=== PATIENT | male | born 1970 | race Caucasian/White ===

== ENCOUNTER 2023-01-28 13:43 | Inpatient (IN) | payer MEDICAID ==
[2023-01-28] VITALS (11 sets, daily range): BP systolic 105–159; BP diastolic 71–101; PULSE 96–125; RESP 18–23; TEMP 98.4; O2SAT 91
[~2023-01-28] VITALS: Ht 172.7 cm; Wt 77.6 kg
[2023-01-28] MEDS: SODIUM CHLORIDE 0.9% 1,000 ML IV SCH ×2 (14:00→23:01)
[2023-01-28] MEDS ORDERED: LEVOFLOXACIN 750MG PREMIX 150 ML IV ONE (14:15)
[2023-01-28] MEDS ORDERED: PIPERACILLIN/TAZ 3.375G PREMIX 50 ML IV ONE (14:15)
[2023-01-28] MEDS ORDERED: SODIUM CHLORIDE 0.9% 1000ML BAG (SEPSIS BOLUS) IV ONE (14:15)
[2023-01-28] MEDS ORDERED: VANCOMYCIN 1G PREMIX 200 ML IV ONE (14:15)
[2023-01-28] MEDS ORDERED: HYDROCORTISONE SOD SUCCINATE 100 MG/2 ML VIAL IV ONE (14:15)
[2023-01-28 14:51] LABS: BG BASE EXCESS -1.2 mmol/L (-2.0-2.0); BG CARBOXYHEMOGLOBIN 0.3 % (0.5-1.5); BG DEOXYHEMOGLOBIN 3.9 % (0.0-5.0); BG FRACTION INSPIRED OXYGEN 100; BG HCO3 ACT 26.1 mmol/L (22.0-26.0); BG METHEMOGLOBIN 0.4 % (0.0-1.5); BG OXYGEN SATURATION 96.1 % (92.0-98.5); BG OXYHEMOGLOBIN 95.4 % (94.0-97.0); BG PH 7.263 (7.350-7.450); BG PO2 103.3 mmHg (75.0-100.0); BG SAMPLE SITE RIGHT RADIAL; BG TOTAL HEMOGLOBIN 7.7 g/dL (12.0-18.0); BG VENT MODE VENT - AC
[2023-01-28 14:52] LABS: CLARITY URINE CLEAR (CLEAR); COLOR URINE DARK YELLOW (YELLOW); GLUCOSE URINE NEGATIVE (NEGATIVE); KETONES URINE NEGATIVE (NEGATIVE); LEUKOCYTE ESTERASE URINE TRACE (NEGATIVE); NITRITE URINE POSITIVE (NEGATIVE); OCCULT BLOOD URINE NEGATIVE (NEGATIVE); PROTEIN URINE 1+ (NEGATIVE); SPECIFIC GRAVITY URINE 1.019 (1.005-1.030); UROBILINOGEN URINE 0.2 E.U./dL (0.2-1.0)
[2023-01-28 14:53] LABS: HEMATOCRIT. 22.4 % (42.0-52.0); MEAN CORPUSCULAR HEMOGLOBIN 22.4 pg (28.0-32.0); MEAN CORPUSCULAR HGB CONC 29.9 g/dL (31.0-37.0); MEAN PLATELET VOLUME 8.4 fl (7.4-10.4); PLATELET 278 x1000/uL (130-400); RED BLOOD CELL COUNT 2.98 mill/uL (4.7-6.1); RED CELL DISTRIBUTION WIDTH 19.6 % (11.6-14.6); WHITE BLOOD COUNT 37.3 x1000/uL (4.5-11.0)
[2023-01-28] MEDS ORDERED: ACETAMINOPHEN 650MG SUPP PR NR (15:00)
[2023-01-28] MEDS ORDERED: IPRATROPIUM/ALBUTEROL 0.5-3(2.5)MG/3ML NEB HHN NR (15:00)
[2023-01-28 15:01] LABS: CHLORIDE 104 mEq/L (98-107); INDEX HEMOLYSI 2 (1-3); INDEX ICTERIC 1 (1-4); INDEX LIPEMIC 1 (1-3); POTASSIUM 4.7 mEq/L (3.5-5.1); SODIUM 137 mEq/L (136-145)
[2023-01-28 15:03] LABS: CALCIUM 7.9 mg/dL (8.5-10.1)
[2023-01-28 15:07] LABS: MUCUS URINE TRACE /lpf (NONE/TRACE); SQUAMOUS EPITHELIAL CELL URINE NONE SEEN /lpf (RARE/1+)
[2023-01-28 15:08] LABS: BACTERIA URINE 1+; YEAST URINE 1+
[2023-01-28 15:09] LABS: RBC URINE 0-2 /hpf (0-2); WBC URINE 0-2 /hpf (0-2)
[2023-01-28 15:11] LABS: INR 1.1; PROTHROMBIN TIME 12.2 sec (9.6-11.0)
[2023-01-28 15:12] LABS: ALANINE AMINOTRANSFERASE 15 IU/L (13-61); ALBUMIN 1.8 g/dL (3.4-5.0); ASPARTATE AMINOTRANSFERASE 27 IU/L (15-37); BILIRUBIN TOTAL 0.5 mg/dL (0.1-1.0); CARBON DIOXIDE 24 mEq/L (21-32); CREATININE 0.6 mg/dL (0.6-1.3); GLUCOSE 115 mg/dL (70-105); NT PRO B-TYPE NATRIURETIC PEP 742 pg/mL (5-125); TROPONIN I HIGH SENSITIVITY 39 ng/L (<78); UREA NITROGEN BLOOD 17 mg/dL (7-21)
[2023-01-28 15:19] LABS: DIFFERENTIAL COMMENT 1; HEMOGLOBIN. 6.7 g/dL (14.0-18.0)
[2023-01-28 15:21] LABS: LACTIC ACID 6.8 mmol/L (0.4-2.0)
[2023-01-28] MEDS ORDERED: NOREPINEPHRINE 8MG/250ML PMX 250 ML IV STA (15:48)
[2023-01-28] MEDS ORDERED: CALCIUM CHLORIDE 1,000 MG in DEXT 5% WATER 90 ML IV ONE (16:00)
[2023-01-28] MEDS ORDERED: NOREPINEPHRINE 8MG/250ML PMX 250 ML IV PRN (16:00)
[2023-01-28 16:13] LABS: ANISOCYTOSIS 2+; HYPOCHROMASIA 1+; MICROCYTOSIS 1+; PLATELET ESTIMATE NORMAL
[2023-01-28] MEDS ORDERED: DOCUSATE SODIUM 100MG CAPSULE PO PRN (16:45)
[2023-01-28] MEDS ORDERED: CLONIDINE 0.1MG TABLET PO PRN (16:45)
[2023-01-28] MEDS ORDERED: GUAIFENESIN 200MG/10ML SUGAR FREE UDC PO PRN (16:45)
[2023-01-28] MEDS ORDERED: ONDANSETRON HCL 4MG/2ML INJ IV PRN (16:45)
[2023-01-28] MEDS ORDERED: MAGNESIUM/ALUMINUM HYDROXIDE/SIMETHICONE 30ML UDC PO PRN (16:45)
[2023-01-28] MEDS ORDERED: ACETAMINOPHEN 325MG TABLET PO PRN (16:45)
[2023-01-28] MEDS ORDERED: NOREPINEPHRINE 8 MG in DEXT 5% WATER 242 ML IV PRN (16:45)
[2023-01-28] MEDS: PANTOPRAZOLE SODIUM 40 MG/VIAL IV SCH (17:00)
[2023-01-28] MEDS ORDERED: AZITHROMYCIN 500MG/250ML 250 ML IV NR (17:00)
[2023-01-28] MEDS ORDERED: NOREPINEPHRINE 8MG/250ML PMX 250ML IV PRN (17:00)
[2023-01-28] MEDS ORDERED: DEXTROSE 50% WATER 50ML SYRINGE IV PRN (17:30)
[2023-01-28 17:40] LABS: PHOSPHORUS 4.5 mg/dL (2.5-4.9)
[2023-01-28 17:57] LABS: FERRITIN 432 ng/mL (22-322)
[2023-01-28] MEDS: MEROPENEM 1,000 MG in SODIUM CHLORIDE 0.9% 100 ML IV SCH (18:00)
[2023-01-28] MEDS: BLOOD SUGAR DIAGNOSTIC STRIP TEST SCH ×2 (18:09→21:00)
[2023-01-28 18:10] LABS: VITAMIN B12 SERUM 1551 pg/mL (211-911)
[2023-01-28] MEDS ORDERED: LEVOFLOXACIN 750MG PREMIX 150 ML IV SCH (18:15)
[2023-01-28 18:17] LABS: FOLIC ACID (FOLATE) SERUM > 20.00 ng/mL (>5.38)
[2023-01-28] MEDS: INSULIN LISPRO 100 UNITS/ML SUBCUT SCH ×2 (18:25→22:59)
[2023-01-28] MEDS ORDERED: VANCOMYCIN 1.25GM PMX (XELLIA) 250 ML IV SCH (20:00)
[2023-01-28] MEDS: IPRATROPIUM/ALBUTEROL 0.5-3(2.5)MG/3ML NEB HHN SCH (20:15)
[2023-01-28] MEDS: VANCOMYCIN 1.25GM PMX (XELLIA) 250 ML IV SCH (22:59)
[2023-01-29] VITALS (45 sets, daily range): BP systolic 100–175; BP diastolic 63–106; PULSE 81–119; RESP 22–25; TEMP 94.1–98.2
[2023-01-29] MEDS: IPRATROPIUM/ALBUTEROL 0.5-3(2.5)MG/3ML NEB HHN SCH ×6 (00:46→20:50)
[2023-01-29] MEDS ORDERED: FLUCONAZOLE 100MG TABLET PEG SCH (01:15)
[2023-01-29 01:29] LABS: HEMATOCRIT 21.8 % (42.0-52.0)
[2023-01-29 01:38] LABS: HEMOGLOBIN 6.7 g/dL (14.0-18.0)
[2023-01-29] MEDS ORDERED: FLUCONAZOLE 200MG/5ML ORAL SYR PEG SCH (02:00)
[2023-01-29] MEDS: MEROPENEM 1,000 MG in SODIUM CHLORIDE 0.9% 100 ML IV SCH ×3 (02:12→20:08)
[2023-01-29] MEDS: INSULIN LISPRO 100 UNITS/ML SUBCUT SCH ×3 (07:33→20:12)
[2023-01-29] MEDS ORDERED: AZITHROMYCIN 500 MG in DEXT 5% WATER 250 ML IV SCH (08:00)
[2023-01-29] MEDS: BLOOD SUGAR DIAGNOSTIC STRIP TEST SCH ×3 (08:35→20:11)
[2023-01-29 08:56] LABS: BG BASE EXCESS -1.2 mmol/L (-2.0-2.0); BG CARBOXYHEMOGLOBIN 0.7 % (0.5-1.5); BG DEOXYHEMOGLOBIN 0.7 % (0.0-5.0); BG FRACTION INSPIRED OXYGEN 100; BG HCO3 ACT 24.5 mmol/L (22.0-26.0); BG METHEMOGLOBIN 0.9 % (0.0-1.5); BG OXYGEN SATURATION 99.3 % (92.0-98.5); BG OXYHEMOGLOBIN 97.7 % (94.0-97.0); BG PCO2 46.9 mmHg (35.0-45.0); BG PH 7.336 (7.350-7.450); BG PO2 236.3 mmHg (75.0-100.0); BG SAMPLE SITE RIGHT RADIAL; BG TOTAL HEMOGLOBIN 6.1 g/dL (12.0-18.0); BG TOTAL RESPIRATORY RATE 22 b/min; BG VENT MODE VENT - AC
[2023-01-29] MEDS: PANTOPRAZOLE SODIUM 40 MG/VIAL IV SCH (09:02)
[2023-01-29 09:06] LABS: DIFFERENTIAL COMMENT 1; HEMATOCRIT. 25.2 % (42.0-52.0); HEMOGLOBIN. 7.9 g/dL (14.0-18.0); MEAN CORPUSCULAR HEMOGLOBIN 24.3 pg (28.0-32.0); MEAN CORPUSCULAR HGB CONC 31.2 g/dL (31.0-37.0); MEAN CORPUSCULAR VOLUME 77.7 fL (80.0-94.0); MEAN PLATELET VOLUME 8.1 fl (7.4-10.4); PLATELET 333 x1000/uL (130-400); RED BLOOD CELL COUNT 3.24 mill/uL (4.7-6.1); RED CELL DISTRIBUTION WIDTH 20.4 % (11.6-14.6)
[2023-01-29 09:26] LABS: CHLORIDE 110 mEq/L (98-107); INDEX HEMOLYSI 1 (1-3); INDEX ICTERIC 1 (1-4); INDEX LIPEMIC 1 (1-3); POTASSIUM 3.6 mEq/L (3.5-5.1); SODIUM 141 mEq/L (136-145)
[2023-01-29 09:47] LABS: CREATINE KINASE MB FRACTION 1.5 ng/mL (0.5-3.6); T4 FREE 1.1 ng/dL (0.76-1.46); THYROID STIMULATING HORMONE 0.96 uIU/mL (0.36-3.74)
[2023-01-29] MEDS: SODIUM CHLORIDE 0.9% 1,000 ML IV SCH ×2 (09:48→10:41)
[2023-01-29 11:05] LABS: CREATININE 0.3 mg/dL (0.6-1.3); GLUCOSE 121 mg/dL (70-105); PHOSPHORUS 3.5 mg/dL (2.5-4.9); UREA NITROGEN BLOOD 14 mg/dL (7-21)
[2023-01-29] MEDS: VANCOMYCIN 1.25GM PMX (XELLIA) 250 ML IV SCH ×2 (11:33→22:51)
[2023-01-29 12:52] LABS: TROPONIN I HIGH SENSITIVITY 108 ng/L (<78)
[2023-01-29 13:27] LABS: PLATELET ESTIMATE NORMAL
[2023-01-29 13:28] LABS: ANISOCYTOSIS 2+; HYPOCHROMASIA 1+
[2023-01-29 13:29] LABS: MICROCYTOSIS 1+
[2023-01-29 16:28] LABS: CARBON DIOXIDE 22 mEq/L (21-32)
[2023-01-29] MEDS: ACETYLCYSTEINE 200MG/ML 20% VIAL 4ML INH SCH ×2 (16:51→20:49)
[2023-01-29 17:28] LABS: CREATINE KINASE MB FRACTION 1.3 ng/mL (0.5-3.6)
[2023-01-29 22:28] LABS: CREATINE KINASE MB FRACTION 1.4 ng/mL (0.5-3.6)
[2023-01-30] VITALS (24 sets, daily range): BP systolic 114–139; BP diastolic 74–91; PULSE 92–109; RESP 20–26; TEMP 97.8–98.9
[2023-01-30] MEDS: IPRATROPIUM/ALBUTEROL 0.5-3(2.5)MG/3ML NEB HHN SCH ×6 (00:28→20:41)
[2023-01-30 02:45] LABS: INDEX HEMOLYSI 1 (1-3)
[2023-01-30 04:19] LABS: CREATINE KINASE 13 IU/L (39-308); CREATINE KINASE MB FRACTION < 1.0 ng/mL (0.5-3.6)
[2023-01-30 04:21] LABS: TROPONIN I HIGH SENSITIVITY 118 ng/L (<78)
[2023-01-30] MEDS: MEROPENEM 1,000 MG in SODIUM CHLORIDE 0.9% 100 ML IV SCH ×3 (04:26→17:05)
[2023-01-30] MEDS: SODIUM CHLORIDE 0.9% 1,000 ML IV SCH (04:30)
[2023-01-30 06:18] LABS: HEMATOCRIT. 23.3 % (42.0-52.0); HEMOGLOBIN. 7.5 g/dL (14.0-18.0); MEAN CORPUSCULAR HEMOGLOBIN 24.9 pg (28.0-32.0); MEAN CORPUSCULAR HGB CONC 32.3 g/dL (31.0-37.0); MEAN CORPUSCULAR VOLUME 77.1 fL (80.0-94.0); MEAN PLATELET VOLUME 8.2 fl (7.4-10.4); PLATELET 375 x1000/uL (130-400); RED BLOOD CELL COUNT 3.02 mill/uL (4.7-6.1); RED CELL DISTRIBUTION WIDTH 20.3 % (11.6-14.6); WHITE BLOOD COUNT 23.2 x1000/uL (4.5-11.0)
[2023-01-30 06:47] LABS: DIFFERENTIAL COMMENT 1
[2023-01-30] MEDS: BLOOD SUGAR DIAGNOSTIC STRIP TEST SCH ×4 (07:29→21:00)
[2023-01-30 07:36] LABS: CHLORIDE 114 mEq/L (98-107); INDEX HEMOLYSI 1 (1-3); INDEX ICTERIC 1 (1-4); INDEX LIPEMIC 1 (1-3); SODIUM 145 mEq/L (136-145)
[2023-01-30 07:37] LABS: CALCIUM 8.1 mg/dL (8.5-10.1)
[2023-01-30 07:45] LABS: ALBUMIN 1.7 g/dL (3.4-5.0); CARBON DIOXIDE 28 mEq/L (21-32); CREATININE 0.3 mg/dL (0.6-1.3); GLUCOSE 89 mg/dL (70-105); PREALBUMIN 6.7 mg/dL (20.0-40.0); UREA NITROGEN BLOOD 13 mg/dL (7-21)
[2023-01-30] MEDS: INSULIN LISPRO 100 UNITS/ML SUBCUT SCH ×4 (08:00→21:00)
[2023-01-30] MEDS: PANTOPRAZOLE SODIUM 40 MG/VIAL IV SCH (08:02)
[2023-01-30] MEDS: ACETYLCYSTEINE 200MG/ML 20% VIAL 4ML INH SCH ×2 (08:27→16:18)
[2023-01-30] MEDS ORDERED: POTASSIUM CHLORIDE 20MEQ TABLET SR PO NR (09:33)
[2023-01-30 09:36] LABS: BG BASE EXCESS 0.3 mmol/L (-2.0-2.0); BG CARBOXYHEMOGLOBIN 0.1 % (0.5-1.5); BG DEOXYHEMOGLOBIN 1.1 % (0.0-5.0); BG FRACTION INSPIRED OXYGEN 60; BG HCO3 ACT 24.7 mmol/L (22.0-26.0); BG METHEMOGLOBIN 0.1 % (0.0-1.5); BG OXYGEN SATURATION 98.9 % (92.0-98.5); BG OXYHEMOGLOBIN 98.7 % (94.0-97.0); BG PO2 148.8 mmHg (75.0-100.0); BG SAMPLE SITE RIGHT RADIAL; BG TOTAL HEMOGLOBIN 8.2 g/dL (12.0-18.0); BG TOTAL RESPIRATORY RATE 24 b/min; BG VENT MODE VENT - AC
[2023-01-30] MEDS: AZITHROMYCIN 500 MG in DEXT 5% WATER 250 ML IV SCH (09:54)
[2023-01-30] MEDS ORDERED: KCL 20MEQ/100ML PREMIX 100 ML IV NR (11:00)
[2023-01-30] MEDS: VANCOMYCIN 750MG PREMIX 150 ML IV SCH (17:06)
[2023-01-30 23:45] LABS: PLATELET ESTIMATE NORMAL
[2023-01-30 23:46] LABS: ANISOCYTOSIS 2+; HYPOCHROMASIA 1+; MICROCYTOSIS 1+
[2023-01-31] VITALS (22 sets, daily range): BP systolic 113–143; BP diastolic 73–92; PULSE 61–122; RESP 20–26; TEMP 97.7–100.1
[2023-01-31] MEDS: ACETYLCYSTEINE 200MG/ML 20% VIAL 4ML INH SCH ×3 (00:09→16:23)
[2023-01-31] MEDS: IPRATROPIUM/ALBUTEROL 0.5-3(2.5)MG/3ML NEB HHN SCH ×6 (00:09→20:50)
[2023-01-31] MEDS: ACETAMINOPHEN 325MG TABLET PO PRN ×5 (01:14→22:49)
[2023-01-31] MEDS: SODIUM CHLORIDE 0.9% 1,000 ML IV SCH ×3 (01:16→23:00)
[2023-01-31] MEDS: MEROPENEM 1,000 MG in SODIUM CHLORIDE 0.9% 100 ML IV SCH ×2 (01:37→09:08)
[2023-01-31] MEDS: VANCOMYCIN 750MG PREMIX 150 ML IV SCH ×2 (06:06→18:02)
[2023-01-31] MEDS: BLOOD SUGAR DIAGNOSTIC STRIP TEST SCH ×3 (07:30→17:58)
[2023-01-31 07:55] LABS: BASOPHILS % 0.1 % (0.0-2.0); DIFFERENTIAL COMMENT 0; EOSINOPHILS % 0.2 % (0.0-5.0); HEMATOCRIT. 26.4 % (42.0-52.0); HEMOGLOBIN. 8.2 g/dL (14.0-18.0); LYMPHOCYTES % 8.8 % (20.0-50.0); MEAN CORPUSCULAR VOLUME 77.4 fL (80.0-94.0); MEAN PLATELET VOLUME 7.9 fl (7.4-10.4); MONOCYTES % 3.2 % (2.0-8.0); NEUTROPHILS % 87.7 % (40.0-76.0); PLATELET 413 x1000/uL (130-400); RED BLOOD CELL COUNT 3.42 mill/uL (4.7-6.1); RED CELL DISTRIBUTION WIDTH 20.5 % (11.6-14.6); WHITE BLOOD COUNT 18.9 x1000/uL (4.5-11.0)
[2023-01-31] MEDS: INSULIN LISPRO 100 UNITS/ML SUBCUT SCH ×3 (08:00→17:58)
[2023-01-31 08:08] LABS: CHLORIDE 109 mEq/L (98-107); INDEX HEMOLYSI 1 (1-3); INDEX ICTERIC 1 (1-4); INDEX LIPEMIC 1 (1-3); POTASSIUM 3.2 mEq/L (3.5-5.1); SODIUM 142 mEq/L (136-145)
[2023-01-31 08:17] LABS: CALCIUM 8.3 mg/dL (8.5-10.1); CARBON DIOXIDE 29 mEq/L (21-32); CREATININE 0.4 mg/dL (0.6-1.3); GLUCOSE 83 mg/dL (70-105); UREA NITROGEN BLOOD 10 mg/dL (7-21)
[2023-01-31] MEDS ORDERED: POTASSIUM CHLORIDE 20MEQ/PACKET PO NR (08:30)
[2023-01-31] MEDS ORDERED: POTASSIUM CHLORIDE INJ 40 MEQ in DEXT 5% WATER 250 ML IV ONE (08:30)
[2023-01-31] MEDS: PANTOPRAZOLE SODIUM 40 MG/VIAL IV SCH (08:36)
[2023-01-31] MEDS: AZITHROMYCIN 500 MG in DEXT 5% WATER 250 ML IV SCH (10:01)
[2023-01-31] MEDS: AMPICILLIN SOD/SULBACTAM NA 3 G in SODIUM CHLORIDE 0.9% 100 ML IV SCH ×3 (11:31→23:04)
[2023-01-31] MEDS ORDERED: VANCOMYCIN 250MG/5ML ORAL SYRINGE PO SCH (12:00)
[2023-01-31] MEDS: KCL 20MEQ/100ML X 2 FOR TOTAL KCL 40MEQ/200ML IV SCH ×2 (12:09→13:43)
[2023-01-31] MEDS ORDERED: SODIUM CHLORIDE 0.9% 500 ML IV NR ×3 (14:30→15:30)
[2023-01-31] MEDS: VANCOMYCIN 250MG/5ML ORAL SYRINGE PO SCH ×3 (15:19→20:59)
[2023-02-01] VITALS (21 sets, daily range): BP systolic 106–152; BP diastolic 71–88; PULSE 60–128; RESP 0–20; TEMP 97.8–99.1
[2023-02-01] MEDS: IPRATROPIUM/ALBUTEROL 0.5-3(2.5)MG/3ML NEB HHN SCH ×5 (00:56→19:58)
[2023-02-01 03:15] LABS: BASOPHILS % 0.2 % (0.0-2.0); DIFFERENTIAL COMMENT 0; EOSINOPHILS % 1.2 % (0.0-5.0); HEMATOCRIT. 28.1 % (42.0-52.0); HEMOGLOBIN. 8.8 g/dL (14.0-18.0); LYMPHOCYTES % 11.6 % (20.0-50.0); MEAN CORPUSCULAR HGB CONC 31.2 g/dL (31.0-37.0); MEAN CORPUSCULAR VOLUME 77.1 fL (80.0-94.0); MEAN PLATELET VOLUME 7.7 fl (7.4-10.4); MONOCYTES % 4.4 % (2.0-8.0); NEUTROPHILS % 82.6 % (40.0-76.0); PLATELET 418 x1000/uL (130-400); RED BLOOD CELL COUNT 3.65 mill/uL (4.7-6.1); WHITE BLOOD COUNT 13.8 x1000/uL (4.5-11.0)
[2023-02-01 03:21] LABS: CHLORIDE 109 mEq/L (98-107); INDEX HEMOLYSI 1 (1-3); INDEX ICTERIC 1 (1-4); INDEX LIPEMIC 1 (1-3); POTASSIUM 3.4 mEq/L (3.5-5.1); SODIUM 144 mEq/L (136-145)
[2023-02-01 03:27] LABS: CARBON DIOXIDE 33 mEq/L (21-32); CREATININE 0.3 mg/dL (0.6-1.3); GLUCOSE 145 mg/dL (70-105); UREA NITROGEN BLOOD 8 mg/dL (7-21)
[2023-02-01] MEDS: AMPICILLIN SOD/SULBACTAM NA 3 G in SODIUM CHLORIDE 0.9% 100 ML IV SCH ×4 (04:39→23:13)
[2023-02-01] MEDS: INSULIN LISPRO 100 UNITS/ML SUBCUT SCH ×4 (05:54→17:51)
[2023-02-01] MEDS: VANCOMYCIN 250MG/5ML ORAL SYRINGE PO SCH ×4 (05:54→17:58)
[2023-02-01] MEDS: BLOOD SUGAR DIAGNOSTIC STRIP TEST SCH ×4 (05:54→17:50)
[2023-02-01] MEDS: VANCOMYCIN 750MG PREMIX 150 ML IV SCH (05:58)
[2023-02-01] MEDS: SODIUM CHLORIDE 0.9% 1,000 ML IV SCH ×2 (06:48→20:44)
[2023-02-01] MEDS ORDERED: POTASSIUM CHLORIDE 20MEQ/PACKET PO NR (08:00)
[2023-02-01 08:35] LABS: PHOSPHORUS 1.9 mg/dL (2.5-4.9)
[2023-02-01] MEDS: PANTOPRAZOLE SODIUM 40 MG/VIAL IV SCH (08:47)
[2023-02-01] MEDS: ACETYLCYSTEINE 200MG/ML 20% VIAL 4ML INH SCH ×3 (09:01→16:56)
[2023-02-01] MEDS ORDERED: POTASSIUM CHLORIDE 20MEQ TABLET SR PO SCH (10:30)
[2023-02-01] MEDS ORDERED: POTASSIUM PHOS,M-BASIC-D-BASIC 20 MMOL in DEXT 5% WATER 243.3333 ML IV ONE (10:30)
[2023-02-01] MEDS: ENOXAPARIN 40MG/0.4ML SYR SUBCUT SCH (10:30)
[2023-02-01] MEDS: AZITHROMYCIN 500 MG in DEXT 5% WATER 250 ML IV SCH (11:15)
[2023-02-01] MEDS: CEFEPIME 2,000 MG in DEXT 5% WATER 100 ML IV SCH (20:13)
[2023-02-02] VITALS (25 sets, daily range): BP systolic 121–140; BP diastolic 76–92; PULSE 69–114; RESP 0–20; TEMP 97.2–98
[2023-02-02] MEDS: IPRATROPIUM/ALBUTEROL 0.5-3(2.5)MG/3ML NEB HHN SCH ×6 (00:03→20:53)
[2023-02-02] MEDS: ACETYLCYSTEINE 200MG/ML 20% VIAL 4ML INH SCH ×3 (00:48→15:41)
[2023-02-02] MEDS: VANCOMYCIN 250MG/5ML ORAL SYRINGE PO SCH ×5 (01:23→23:00)
[2023-02-02] MEDS: AMPICILLIN SOD/SULBACTAM NA 3 G in SODIUM CHLORIDE 0.9% 100 ML IV SCH ×4 (04:33→22:12)
[2023-02-02] MEDS: SODIUM CHLORIDE 0.9% 1,000 ML IV SCH (05:35)
[2023-02-02] MEDS: CEFEPIME 2,000 MG in DEXT 5% WATER 100 ML IV SCH ×2 (05:38→18:55)
[2023-02-02] MEDS: BLOOD SUGAR DIAGNOSTIC STRIP TEST SCH ×5 (05:43→23:00)
[2023-02-02] MEDS: INSULIN LISPRO 100 UNITS/ML SUBCUT SCH ×5 (05:43→23:00)
[2023-02-02 06:25] LABS: BASOPHILS % 0.2 % (0.0-2.0); DIFFERENTIAL COMMENT 0; HEMATOCRIT. 27.5 % (42.0-52.0); HEMOGLOBIN. 8.9 g/dL (14.0-18.0); MEAN CORPUSCULAR HEMOGLOBIN 24.7 pg (28.0-32.0); MEAN CORPUSCULAR HGB CONC 32.2 g/dL (31.0-37.0); MEAN CORPUSCULAR VOLUME 76.8 fL (80.0-94.0); MEAN PLATELET VOLUME 7.9 fl (7.4-10.4); MONOCYTES % 4.6 % (2.0-8.0); NEUTROPHILS % 82.2 % (40.0-76.0); PLATELET 438 x1000/uL (130-400); RED BLOOD CELL COUNT 3.58 mill/uL (4.7-6.1); RED CELL DISTRIBUTION WIDTH 20.9 % (11.6-14.6); WHITE BLOOD COUNT 14.6 x1000/uL (4.5-11.0)
[2023-02-02 07:47] LABS: CHLORIDE 102 mEq/L (98-107); INDEX HEMOLYSI 1 (1-3); INDEX ICTERIC 1 (1-4); INDEX LIPEMIC 1 (1-3); POTASSIUM 3.5 mEq/L (3.5-5.1); SODIUM 141 mEq/L (136-145)
[2023-02-02 07:55] LABS: CALCIUM 7.9 mg/dL (8.5-10.1); CARBON DIOXIDE 34 mEq/L (21-32); CREATININE 0.2 mg/dL (0.6-1.3); GLUCOSE 103 mg/dL (70-105); PHOSPHORUS 2.3 mg/dL (2.5-4.9); UREA NITROGEN BLOOD 6 mg/dL (7-21)
[2023-02-02] MEDS: ENOXAPARIN 40MG/0.4ML SYR SUBCUT SCH (09:50)
[2023-02-02] MEDS: PANTOPRAZOLE SODIUM 40 MG/VIAL IV SCH (09:50)
[2023-02-02 10:24] LABS: ERYTHROCYTE SEDIMENTATION RATE 72 mm/hr (0-20)
[2023-02-03] VITALS (24 sets, daily range): BP systolic 131–170; BP diastolic 78–91; PULSE 65–104; RESP 8–24; TEMP 97.9–99.8
[2023-02-03] MEDS: AMPICILLIN SOD/SULBACTAM NA 3 G in SODIUM CHLORIDE 0.9% 100 ML IV SCH ×4 (04:22→22:23)
[2023-02-03] MEDS: BLOOD SUGAR DIAGNOSTIC STRIP TEST SCH ×3 (05:15→17:11)
[2023-02-03] MEDS: INSULIN LISPRO 100 UNITS/ML SUBCUT SCH ×3 (05:15→17:12)
[2023-02-03] MEDS: CEFEPIME 2,000 MG in DEXT 5% WATER 100 ML IV SCH ×3 (05:15→21:17)
[2023-02-03] MEDS: VANCOMYCIN 250MG/5ML ORAL SYRINGE PO SCH ×4 (05:15→23:25)
[2023-02-03 06:24] LABS: BASOPHILS % 0.2 % (0.0-2.0); DIFFERENTIAL COMMENT 0; EOSINOPHILS % 1.9 % (0.0-5.0); HEMATOCRIT. 27.2 % (42.0-52.0); HEMOGLOBIN. 8.7 g/dL (14.0-18.0); LYMPHOCYTES % 12.4 % (20.0-50.0); MEAN CORPUSCULAR HEMOGLOBIN 24.4 pg (28.0-32.0); MEAN CORPUSCULAR VOLUME 76.3 fL (80.0-94.0); MEAN PLATELET VOLUME 8.1 fl (7.4-10.4); MONOCYTES % 4.2 % (2.0-8.0); NEUTROPHILS % 81.3 % (40.0-76.0); PLATELET 437 x1000/uL (130-400); RED BLOOD CELL COUNT 3.56 mill/uL (4.7-6.1); RED CELL DISTRIBUTION WIDTH 21.1 % (11.6-14.6); WHITE BLOOD COUNT 13.3 x1000/uL (4.5-11.0)
[2023-02-03 06:50] LABS: CHLORIDE 102 mEq/L (98-107); INDEX HEMOLYSI 1 (1-3); INDEX ICTERIC 1 (1-4); INDEX LIPEMIC 1 (1-3); POTASSIUM 3.5 mEq/L (3.5-5.1); SODIUM 139 mEq/L (136-145)
[2023-02-03 07:06] LABS: CALCIUM 7.9 mg/dL (8.5-10.1); CARBON DIOXIDE 35 mEq/L (21-32); CREATININE 0.2 mg/dL (0.6-1.3); GLUCOSE 115 mg/dL (70-105); UREA NITROGEN BLOOD 8 mg/dL (7-21)
[2023-02-03] MEDS: ACETYLCYSTEINE 200MG/ML 20% VIAL 4ML INH SCH (08:28)
[2023-02-03] MEDS: PANTOPRAZOLE SODIUM 40 MG/VIAL IV SCH (09:10)
[2023-02-03] MEDS: ENOXAPARIN 40MG/0.4ML SYR SUBCUT SCH (09:10)
[2023-02-03] MEDS: IPRATROPIUM/ALBUTEROL 0.5-3(2.5)MG/3ML NEB HHN SCH ×2 (16:22→20:57)
[2023-02-04] VITALS (23 sets, daily range): BP systolic 113–139; BP diastolic 75–87; PULSE 62–98; RESP 19–21; TEMP 97.2–99.5
[2023-02-04] MEDS: IPRATROPIUM/ALBUTEROL 0.5-3(2.5)MG/3ML NEB HHN SCH ×6 (00:26→21:25)
[2023-02-04] MEDS: AMPICILLIN SOD/SULBACTAM NA 3 G in SODIUM CHLORIDE 0.9% 100 ML IV SCH ×4 (04:54→22:12)
[2023-02-04] MEDS: CEFEPIME 2,000 MG in DEXT 5% WATER 100 ML IV SCH ×3 (05:08→21:04)
[2023-02-04] MEDS: VANCOMYCIN 250MG/5ML ORAL SYRINGE PO SCH ×4 (05:09→23:22)
[2023-02-04] MEDS: INSULIN LISPRO 100 UNITS/ML SUBCUT SCH ×4 (06:00→17:49)
[2023-02-04] MEDS: BLOOD SUGAR DIAGNOSTIC STRIP TEST SCH ×4 (06:00→17:49)
[2023-02-04] MEDS: PANTOPRAZOLE SODIUM 40 MG/VIAL IV SCH (09:22)
[2023-02-04] MEDS: ENOXAPARIN 40MG/0.4ML SYR SUBCUT SCH (09:22)
[2023-02-04 09:23] LABS: BASOPHILS % 0.3 % (0.0-2.0); DIFFERENTIAL COMMENT 0; EOSINOPHILS % 1.9 % (0.0-5.0); HEMATOCRIT. 27.4 % (42.0-52.0); HEMOGLOBIN. 8.7 g/dL (14.0-18.0); LYMPHOCYTES % 14.5 % (20.0-50.0); MEAN CORPUSCULAR HEMOGLOBIN 24.4 pg (28.0-32.0); MEAN CORPUSCULAR HGB CONC 31.8 g/dL (31.0-37.0); MEAN CORPUSCULAR VOLUME 76.9 fL (80.0-94.0); MEAN PLATELET VOLUME 7.7 fl (7.4-10.4); MONOCYTES % 4.4 % (2.0-8.0); NEUTROPHILS % 78.9 % (40.0-76.0); PLATELET 445 x1000/uL (130-400); RED BLOOD CELL COUNT 3.56 mill/uL (4.7-6.1); RED CELL DISTRIBUTION WIDTH 21.3 % (11.6-14.6); WHITE BLOOD COUNT 12.9 x1000/uL (4.5-11.0)
[2023-02-04 12:41] LABS: CHLORIDE 103 mEq/L (98-107); INDEX HEMOLYSI 1 (1-3); INDEX ICTERIC 1 (1-4); INDEX LIPEMIC 1 (1-3); POTASSIUM 3.9 mEq/L (3.5-5.1); SODIUM 139 mEq/L (136-145)
[2023-02-04 12:48] LABS: CALCIUM 8.3 mg/dL (8.5-10.1); CARBON DIOXIDE 34 mEq/L (21-32); CREATININE 0.3 mg/dL (0.6-1.3); GLUCOSE 131 mg/dL (70-105); UREA NITROGEN BLOOD 11 mg/dL (7-21)
[2023-02-05] VITALS (25 sets, daily range): BP systolic 111–136; BP diastolic 69–89; PULSE 64–116; RESP 20–26; TEMP 97.2–97.9
[2023-02-05] MEDS: IPRATROPIUM/ALBUTEROL 0.5-3(2.5)MG/3ML NEB HHN SCH ×5 (00:52→20:08)
[2023-02-05] MEDS: AMPICILLIN SOD/SULBACTAM NA 3 G in SODIUM CHLORIDE 0.9% 100 ML IV SCH ×2 (05:21→11:09)
[2023-02-05] MEDS: CEFEPIME 2,000 MG in DEXT 5% WATER 100 ML IV SCH ×3 (05:22→22:12)
[2023-02-05] MEDS: VANCOMYCIN 250MG/5ML ORAL SYRINGE PO SCH ×2 (05:28→17:55)
[2023-02-05] MEDS: BLOOD SUGAR DIAGNOSTIC STRIP TEST SCH ×4 (05:29→18:21)
[2023-02-05] MEDS: INSULIN LISPRO 100 UNITS/ML SUBCUT SCH ×4 (05:29→18:00)
[2023-02-05 07:06] LABS: BASOPHILS % 0.3 % (0.0-2.0); DIFFERENTIAL COMMENT 0; EOSINOPHILS % 2.7 % (0.0-5.0); HEMATOCRIT. 29.3 % (42.0-52.0); HEMOGLOBIN. 9.4 g/dL (14.0-18.0); LYMPHOCYTES % 14.7 % (20.0-50.0); MEAN CORPUSCULAR HEMOGLOBIN 24.5 pg (28.0-32.0); MEAN CORPUSCULAR HGB CONC 32.1 g/dL (31.0-37.0); MEAN CORPUSCULAR VOLUME 76.3 fL (80.0-94.0); MEAN PLATELET VOLUME 7.8 fl (7.4-10.4); MONOCYTES % 4.2 % (2.0-8.0); NEUTROPHILS % 78.1 % (40.0-76.0); PLATELET 479 x1000/uL (130-400); RED BLOOD CELL COUNT 3.84 mill/uL (4.7-6.1); RED CELL DISTRIBUTION WIDTH 21.4 % (11.6-14.6); WHITE BLOOD COUNT 11.6 x1000/uL (4.5-11.0)
[2023-02-05 07:41] LABS: CHLORIDE 106 mEq/L (98-107); INDEX HEMOLYSI 1 (1-3); INDEX ICTERIC 1 (1-4); INDEX LIPEMIC 1 (1-3); POTASSIUM 3.7 mEq/L (3.5-5.1); SODIUM 142 mEq/L (136-145)
[2023-02-05 07:48] LABS: CARBON DIOXIDE 32 mEq/L (21-32); CREATININE 0.3 mg/dL (0.6-1.3); GLUCOSE 114 mg/dL (70-105); UREA NITROGEN BLOOD 10 mg/dL (7-21)
[2023-02-05] MEDS: PANTOPRAZOLE SODIUM 40 MG/VIAL IV SCH (09:53)
[2023-02-05] MEDS: ENOXAPARIN 40MG/0.4ML SYR SUBCUT SCH (09:53)
[2023-02-05] MEDS: ACETYLCYSTEINE 200MG/ML 20% VIAL 4ML INH SCH (14:00)
[2023-02-06] VITALS (19 sets, daily range): BP systolic 114–125; BP diastolic 68–92; PULSE 87–115; RESP 20; TEMP 98.1–99.9
[2023-02-06] MEDS: VANCOMYCIN 250MG/5ML ORAL SYRINGE PO SCH ×3 (02:08→15:39)
[2023-02-06] MEDS: CEFEPIME 2,000 MG in DEXT 5% WATER 100 ML IV SCH ×2 (05:25→13:20)
[2023-02-06] MEDS: BLOOD SUGAR DIAGNOSTIC STRIP TEST SCH ×4 (05:25→17:32)
[2023-02-06] MEDS: INSULIN LISPRO 100 UNITS/ML SUBCUT SCH ×3 (05:25→12:00)
[2023-02-06 06:47] LABS: CHLORIDE 105 mEq/L (98-107); INDEX HEMOLYSI 1 (1-3); INDEX ICTERIC 1 (1-4); INDEX LIPEMIC 1 (1-3); POTASSIUM 3.9 mEq/L (3.5-5.1); SODIUM 138 mEq/L (136-145)
[2023-02-06 06:49] LABS: BASOPHILS % 0.2 % (0.0-2.0); DIFFERENTIAL COMMENT 0; EOSINOPHILS % 0.5 % (0.0-5.0); HEMATOCRIT. 28.8 % (42.0-52.0); HEMOGLOBIN. 9.2 g/dL (14.0-18.0); LYMPHOCYTES % 8.3 % (20.0-50.0); MEAN CORPUSCULAR HEMOGLOBIN 24.7 pg (28.0-32.0); MEAN CORPUSCULAR VOLUME 77.3 fL (80.0-94.0); MEAN PLATELET VOLUME 7.9 fl (7.4-10.4); MONOCYTES % 3.4 % (2.0-8.0); NEUTROPHILS % 87.6 % (40.0-76.0); PLATELET 474 x1000/uL (130-400); RED BLOOD CELL COUNT 3.73 mill/uL (4.7-6.1); RED CELL DISTRIBUTION WIDTH 21.5 % (11.6-14.6); WHITE BLOOD COUNT 20.4 x1000/uL (4.5-11.0)
[2023-02-06 06:52] LABS: CALCIUM 8.6 mg/dL (8.5-10.1); CARBON DIOXIDE 30 mEq/L (21-32); CREATININE 0.3 mg/dL (0.6-1.3); GLUCOSE 96 mg/dL (70-105); UREA NITROGEN BLOOD 14 mg/dL (7-21)
[2023-02-06] MEDS: IPRATROPIUM/ALBUTEROL 0.5-3(2.5)MG/3ML NEB HHN SCH ×3 (08:42→15:59)
[2023-02-06] MEDS: ACETYLCYSTEINE 200MG/ML 20% VIAL 4ML INH SCH ×2 (08:42→15:59)
[2023-02-06] MEDS ORDERED: LIDOCAINE HCL 1% 10 MG/ML 10ML VIAL ONE (09:09)
[2023-02-06] MEDS: PANTOPRAZOLE SODIUM 40 MG/VIAL IV SCH (09:18)
[2023-02-06] MEDS: ENOXAPARIN 40MG/0.4ML SYR SUBCUT SCH (09:19)
[2023-02-06] MEDS ORDERED: METRONIDAZOLE 500MG TABLET PO SCH (21:00)
== END 2023-02-06 18:20 | DRG 720 ==
LOC: ER 13:43 → CVICU 22:12 → 5EST 01-29 18:04
PROVIDERS: ADMIT Internal Medicine; ATTEND Internal Medicine
PROC: 5A1955Z Respiratory Ventilation, Greater than 96 Consecutive Hours (ICD-10-PCS; principal; 2023-01-28)
PROC: 0BH17EZ Insertion of Endotracheal Airway into Trachea, Via Natural or Artificial Opening (ICD-10-PCS; 2023-01-28)
PROC: 06HY33Z Insertion of Infusion Device into Lower Vein, Percutaneous Approach (ICD-10-PCS; 2023-01-28)
PROC: B54CZZA Ultrasonography of Left Lower Extremity Veins, Guidance (ICD-10-PCS; 2023-01-28)
PROC: 30233N1 Transfusion of Nonautologous Red Blood Cells into Peripheral Vein, Percutaneous Approach (ICD-10-PCS; 2023-01-28)
PROC: 02HV33Z Insertion of Infusion Device into Superior Vena Cava, Percutaneous Approach (ICD-10-PCS; 2023-02-06)
PROC: B548ZZA Ultrasonography of Superior Vena Cava, Guidance (ICD-10-PCS; 2023-02-06)
DX: A41.9 Sepsis, unspecified organism (principal); J96.21 Acute and chronic respiratory failure with hypoxia; G82.50 Quadriplegia, unspecified; J95.851 Ventilator associated pneumonia; R65.21 Severe sepsis with septic shock; R57.0 Cardiogenic shock; G92.8 Other toxic encephalopathy; J15.1 Pneumonia due to Pseudomonas; E46 Unspecified protein-calorie malnutrition; L89.154 Pressure ulcer of sacral region, stage 4; R57.1 Hypovolemic shock; J15.69 Pneumonia due to other Gram-negative bacteria; D50.9 Iron deficiency anemia, unspecified; J96.22 Acute and chronic respiratory failure with hypercapnia; N39.0 Urinary tract infection, site not specified; R13.10 Dysphagia, unspecified; E11.69 Type 2 diabetes mellitus with other specified complication; E78.5 Hyperlipidemia, unspecified; I10 Essential (primary) hypertension; Z93.0 Tracheostomy status; Z93.1 Gastrostomy status; Z99.11 Dependence on respirator [ventilator] status; Z79.01 Long term (current) use of anticoagulants; Z79.4 Long term (current) use of insulin; Z79.899 Other long term (current) drug therapy; Z68.26 Body mass index [BMI] 26.0-26.9, adult; Y83.8 Other surgical procedures as the cause of abnormal reaction of the patient, or of later complication, without mention of misadventure at the time of the procedure
CPT/HCPCS: 36415; 36573; 36600; 71045; 80048; 80053; 80061; 80202; 81003; 82040; 82270; 82375; 82550; 82553; 82607; 82728; 82746; 82805; 82962; 83036; 83540; 83550; 83605; 83735; 83880; 84100; 84134; 84145; 84439; 84443; 84484; 85014; 85018; 85025; 85384; 85651; 86850; 86900; 86920; 87070; 87077; 87186; 87449; 93005; 93306; 93970; 94002; 94003; 94640; 99291; A6261; C1725; C1893; C9113; J0295; J0456; J0692; J1650; J1720; J1815; J1956; J2185; J2543; J3370; J3480; J3490; J7030; J7050; J7060; J7608; P9016